=== PATIENT | female | born 1985 | race Asian ===

== ENCOUNTER 2022-11-08 11:13 | Outpatient (CLI) | payer OTHER | END 2022-11-08 21:21 | disposition home or self-care (01) | LOC: RAD 11:13 → LABW 11:13 | PROVIDERS: ATTEND Nurse Practitioner Family | DX: E55.9 Vitamin D deficiency, unspecified (principal); M06.4 Inflammatory polyarthropathy; M54.12 Radiculopathy, cervical region; M54.17 Radiculopathy, lumbosacral region; M62.81 Muscle weakness (generalized) | CPT/HCPCS: 36415; 81374; 82085; 82306; 82550; 85652; 86140 ==